=== PATIENT | female | born 1995 | race Caucasian/White ===

== ENCOUNTER 2021-07-17 13:28 | Emergency (ER) | payer BC ==
--- NOTE | 2021-07-17 14:37 | EDM.PDOC ---
ED HPI GENERAL MEDICAL PROBLEM - General Chief Complaint: Abdominal Pain Stated Complaint: RT SIDE ABDOMINAL PAIN Time Seen by Provider: 07/17/21 14:35 Source of Information: Reports: Patient, Family History Limitations: Reports: No Limitations - History of Present Illness INITIAL COMMENTS - FREE TEXT/NARRATIVE: pain with coughing and movement pt was half asleep and coughed and she felt like she coughed and did not protect her muscles. She is not nauseated. Onset: Other ( started last nite. ) Location: Reports: Chest, Abdomen Associated Symptoms: Reports: Other (pain when she turns or takes a deep breath on the left cva area. ) Right Lower Abdomen Pain Score (Numeric/FACES): 8 - Related Data Allergies Allergy/AdvReac Type Severity Reaction Status Date / Time No Known Allergies Allergy Verified 07/17/21 14:50 Home Meds: Home Meds SUMAtriptan 100 mg PO ASDIRECTED 07/17/21 [History] Sertraline [Zoloft] 50 mg PO DAILY 07/17/21 [History] Topiramate 100 mg PO DAILY 07/17/21 [History] ED ROS GENERAL - Review of Systems Review Of Systems: See Below Constitutional: Reports: No Symptoms HEENT: Reports: No Symptoms Respiratory: Reports: Shortness of Breath, Other (pain on the left side. ) Endocrine: Reports: No Symptoms GI/Abdominal: Reports: No Symptoms : Reports: No Symptoms Musculoskeletal: Reports: Other (pain in left cva area) ED EXAM, GI/ABD - Physical Exam Exam: See Below Text/Narrative:: pt is having pain in left cva area and left upper abdoman. This hurts when she takes a deep breath or turns. Exam Limited By: No Limitations General Appearance: Alert, Anxious, Moderate Distress Ears: Normal External Exam Nose: Normal Inspection Throat/Mouth: Normal Inspection Head: Atraumatic Neck: Normal Inspection Respiratory/Chest: Other (pain in left cva area. ) Cardiovascular: Regular Rate, Rhythm GI/Abdominal Exam: Soft, Tender, Other (pt is tender under the rib cage. ) (Female) Exam: Deferred Rectal (Female) Exam: Deferred Back Exam: Normal Inspection Extremities: Normal Inspection Course - Vital Signs Last Recorded V/S: Last Vital Signs Temp 36.6 C 07/17/21 14:46 Pulse 72 07/17/21 14:46 Resp 16 07/17/21 14:46 BP 121/58 L 07/17/21 14:46 Pulse Ox 98 07/17/21 14:46 - Orders/Labs/Meds Labs: Laboratory Tests 07/17/21 07/17/21 Range/Units 14:47 15:00 WBC 7.7 (4.5-11.0) K/uL RBC 4.31 (3.30-5.50) M/uL Hgb 13.0 (12.0-15.0) g/dL Hct 37.2 (36.0-48.0) % MCV 86 (80-98) fL MCH 30 (27-31) pg MCHC 35 (32-36) % Plt Count 234 (150-400) K/uL Neut % (Auto) 55.9 (36-66) % Lymph % (Auto) 30.7 (24-44) % [place] % (Auto) 10.7 H (2-6) % Eos % (Auto) 2.2 (2-4) % Baso % (Auto) 0.5 (0-1) % Urine Color Yellow (YELLOW) Urine Appearance Clear (CLEAR) Urine pH 7.5 (5.0-8.0) Ur Specific [place] 1.020 (1.008-1.030) Urine Protein Negative (NEGATIVE) mg/dL Urine Glucose (UA) Negative (NEGATIVE) mg/dL Urine Ketones Negative (NEGATIVE) mg/dL Urine Occult Blood Negative (NEGATIVE) Urine Nitrite Negative (NEGATIVE) Urine Bilirubin Negative (NEGATIVE) Urine Urobilinogen 0.2 (0.2-1.0) EU/dL Ur Leukocyte Esterase Trace H (NEGATIVE) Urine RBC 0-5 (0-5) Urine WBC 0-5 (0-5) Ur Epithelial Cells Not seen Amorphous Sediment Not seen Urine Bacteria Few Urine Mucus Not seen Meds: Medications Discontinued Medications Generic Name Dose Route Start Last Admin Trade Name Freq PRN Reason Stop Dose Admin Ketorolac Tromethamine 30 mg 07/17/21 15:17 07/17/21 15:35 Ketorolac 30 Mg/Ml Sdv IM 07/17/21 15:18 30 mg ONETIME ONE Administration - Re-Assessments/Exams Free Text/Narrative Re-Assessment/Exam: 07/17/21 15:57 pt had a normal ua and a normal wbc. Departure - Departure Time of Disposition: 15:48 Disposition: Home, Self-Care 01 Condition: Fair Clinical Impression: Muscle pain - Discharge Information Referrals: PCP,None [Primary Care Provider] - Forms: ED Department Discharge Care Plan Goals: pt probably pulled muscle with coughing.-- Moist warm packs to [place], soak in a tub encourage deep breathing, torodol 10 mg q6h as needed for pain. Sepsis Event Note (ED) - Focused Exam Vital Signs: Vital Signs Temp Pulse Resp BP Pulse Ox 07/17/21 14:46 36.6 C 72 16 121/58 L 98 07/17/21 14:16 36.6 C 72 16 121/58 L 98
[2021-07-17] MEDS ORDERED: Ketorolac 30 MG/ML SDV IM ONE (15:17)
== END 2021-07-17 16:18 | disposition home or self-care (01) ==
LOC: JP.ED 13:28
DX: M79.10 Myalgia, unspecified site (principal)
CPT/HCPCS: 36415; 81001; 85025; 96372; 99284; J1885